=== PATIENT | male | born 1965 | race Caucasian/White ===

== ENCOUNTER → 2017-07-24 08:52 | Outpatient (CLI) | payer OTHER ==
--- NOTE | 2017-07-24 14:50 | EC ---
PATIENT:CARISSA HAMMOND DATE OF SERVICE: 07/24/17 SEX: M MEDICAL RECORD: [id number] DATE OF : 63 LOCATION:[facility], [facility]–1983 AGE OF PATIENT: 52 ADMISSION DATE: 07/24/17 REFERRING PHYSICIAN: INTERPRETING PHYSICIAN: CASH OLIVAREZ MD ECHOCARDIOGRAM REPORT ECHO CHARGES 4 ECHO COMPLETE CLINICAL DIAGNOSIS: DIZZINESS/SLURRED SPEECH/ CONFUSION ECHOCARDIOGRAPHIC MEASUREMENTS (adult normal given) AC root (d.<3.7cm) 3.0 cm LV Septum d (<1.2 cm> 1.3 cm Valve Excursion 1.7 cm LV Septum (systole) 1.7 cm Left Atria (s.<4.0cm> 2.3 cm LVPW d(<1.2cm) 1.1 cm RV (d.<2.3cm) 2.8 cm LVPW (sytole) 1.6 cm LV diastole(<5.6CM) 4.7 cm MV E-F(>70mm/sec) cm LV systole 3.4 cm LVOT Diameter 1.8 cm MV exc.(>10mm) cm Est.ejection fraction (50-75%) % Pericardial Effusion N DOPPLER: LVIT cm/sec A 78.0 cm/sec E 65.0 cm/sec LA cm/sec RVSP 41.4 mmHg LVOT 100 cm/sec AOP1/2T m/s Asc. Ao 160 cm/sec RVOT 49.0 cm/sec RA cm/sec PA 107 cm/sec AV Gradient Peak 10.3 mmHg AV Mean 4.9 mmHg AV Area 1.5 cm MV Gradient Peak 2.6 mmHg MV Mean 1.1 mmHg MV Area cm COMMENTS: Back Hanger: Marvin GARCIAOE Net Manager: 3 Dr. Brown TAPE# PACS DATE OF SERVICE: 07/24/2017 Adequate 2D echo, color flow, spectral Doppler, and M-mode. No LVH. LV internal dimension is normal. Wall motion is normal. EF is greater than 55%. Aortic valve is tricuspid. No stenosis by Doppler interrogation. The left atrium is normal. Mitral valve shows no prolapse. Trace MR only. Right-sided chamber is grossly normal. Trace TR only. TRANSINT:[id number] Voice Confirmation ID: [id number] DOCUMENT ID: [id number] ECHOCARDIOGRAM REPORT [id number] CARISSA HAMMOND CASH OLIVAREZ MD at 1450 CC: [id number] DICTATION DATE: 07/24/17 1345 FRAMING CARPENTER: 07/24/17 1433 REG [facility] [address] [place] [address]
== END | disposition home or self-care (01) ==
LOC: D.ECHO 08:52
DX: R42 Dizziness and giddiness (principal)